=== PATIENT | male | born 2000 | race Hispanic/Latino ===

== ENCOUNTER 2022-05-01 23:57 | Emergency (ER) | payer SELFPAY ==
[2022-05-02] MEDS ORDERED: Lidocaine 2% PF 5 ML VIAL ONE (01:09)
[2022-05-02] MEDS ORDERED: Bacitracin 1 PK ONE (01:43)
== END 2022-05-02 01:54 | disposition home or self-care (01) ==
LOC: ERS 23:57
DX: S01.111A Laceration without foreign body of right eyelid and periocular area, initial encounter (principal); W22.09XA Striking against other stationary object, initial encounter; Y92.009 Unspecified place in unspecified non-institutional (private) residence as the place of occurrence of the external cause
CPT/HCPCS: 12011; J2001